=== PATIENT | female | born 1970 | race Hispanic/Latino ===

== ENCOUNTER 2018-06-30 09:04 | Emergency (ER) | payer SELFPAY ==
[~2018-06-30] VITALS: Ht 152.4 cm; Wt 128.8 kg
[2018-06-30] MEDS ORDERED: KETOROLAC TROMETHAMINE 60 MG/2 ML VIAL IM ONE (10:15)
[2018-06-30] MEDS ORDERED: DEXAMETHASONE SOD PHOS 10 MG/1 ML VIAL INJ ONE (11:30)
[2018-06-30] MEDS ORDERED: DIAZEPAM 2 MG TAB PO ONE (11:30)
[2018-06-30] MEDS ORDERED: HYDROCODONE/APAP 10MG-325MG TAB PO ONE (11:30)
[2018-06-30] MEDS ORDERED: DIAZEPAM 5 MG TAB PO ONE (11:45)
[2018-06-30] MEDS ORDERED: CYCLOBENZAPRINE5 MG PO (11:48)
[2018-06-30] MEDS ORDERED: TYLENOL WITH C1 EACH PO (11:48)
[2018-06-30] MEDS ORDERED: PREDNISONE20 MG PO (11:48)
--- NOTE | 2018-06-30 13:06 | Diagnostic Imaging Report ---
CT LUMBAR SPINE WO HISTORY: Fall COMPARISON: None. TECHNIQUE: Axial CT images of the lumbar spine were obtained without contrast. Coronal and sagittal reconstructions obtained from the axial data. One or more of the following dose reduction techniques were used: Automated exposure control, adjustment of the mA and/or kV according to patient size, and/or utilization of iterative reconstruction technique. DISCUSSION: There are 5 nonrib-bearing lumbar vertebral bodies. L5 is sacralized with bilateral pseudoarthrosis. The lumbar vertebral bodies will be numbered accordingly. Lumbar lordosis is preserved. There is no significant scoliosis or subluxation. Moderate L2 vertebral burst fracture is present. There is mild surrounding prevertebral and paravertebral soft tissue stranding. There is up to 50% loss of vertebral body height anteriorly. Mild fracture retropulsion along the superior endplate causes at least mild canal stenosis at L1-L2. There is no fracture extension into the pedicles or posterior elements. No additional fracture, compression deformity, or destructive osseous lesion is seen. No gross spinal canal mass is seen. The paravertebral and paraspinal soft tissues are otherwise grossly unremarkable. Mild multilevel spondylotic changes are most prominent at L4-L5. There are mild degenerative changes in the bilateral sacroiliac joints. T12-L1: No gross canal or foraminal stenosis. L1-L2: At least mild canal stenosis as described above. Mild right foraminal stenosis due to disc bulge and facet arthrosis. No gross left foraminal stenosis. L2-L3: Mild bilateral foraminal stenoses due to disc bulge and facet arthrosis. No gross canal stenosis. L3-L4: Mild left foraminal stenosis due to asymmetric disc bulge and facet arthrosis. No gross canal or right foraminal stenosis. L4-L5: Moderate right and moderate to severe left foraminal stenoses due to disc bulge and facet arthrosis. No gross canal stenosis. L5-S1: No gross canal or foraminal stenosis. IMPRESSION: 1. Acute, moderate L2 vertebral burst fracture. Mild fracture retropulsion along the superior endplate causes at least mild canal stenosis at L1-L2. 2. Mild multilevel spondylosis, most prominent at L4-L5. Signed by: Dr. Kevin Obrien M.D. on 06/30/2018 1:02 PM
--- NOTE | 2018-06-30 13:27 | Diagnostic Imaging Report ---
EXAM: CT Pelvis WITHOUT contrast INDICATION: Fall COMPARISON: None. TECHNIQUE: Pelvis was scanned utilizing a multidetector helical scanner without the use of IV contrast. Coronal and sagittal reformations were obtained. IV CONTRAST: None COMPLICATIONS: None RADIATION DOSE: Total DLP: 1119 mGy*cm Estimated effective dose: (DLP x 0.015 x size factor) mSv CTDIvol has been reviewed. It is below the limits set by the Radiation Protocol Committee (RPC). Appropriate CT dose reduction techniques were utilized. FINDINGS: Bladder: Decompressed, limiting adequate evaluation. Uterus/adnexa: Within limitations of nonenhanced CT, grossly unremarkable. Other: No free fluid or adenopathy. Colon: Visualized bowel unremarkable. Bones: No fracture identified within limitations of quantum mottle secondary to body habitus. IMPRESSION: 1. No fracture identified within limitations of quantum mottle secondary to body habitus. Signed by: Dr. Bladimir Lema MD on 06/30/2018 1:24 PM
[2018-07-01] MEDS ORDERED: DIAZEPAM 5 MG TAB PO SCH (09:00)
== END 2018-06-30 13:47 | disposition home or self-care (01) ==
LOC: ER 09:04
DX: S32.021A Stable burst fracture of second lumbar vertebra, initial encounter for closed fracture (principal); S30.0XXA Contusion of lower back and pelvis, initial encounter; W01.0XXA Fall on same level from slipping, tripping and stumbling without subsequent striking against object, initial encounter; Y92.008 Other place in unspecified non-institutional (private) residence as the place of occurrence of the external cause; Z98.84 Bariatric surgery status
CPT/HCPCS: 72131; 72192; 81025; 99283; J1100; J1885